=== PATIENT | female | born 1995 | race Caucasian/White ===

== ENCOUNTER 2024-08-14 15:09 | Emergency (ER) | payer MEDICAID, OTHER ==
[~2024-08-14] VITALS: Ht 162.6 cm; Wt 66.0 kg
[2024-08-14 15:15] VITALS: O2SAT 98
[2024-08-14 15:22] VITALS: BP 138/87; PULSE 100; RESP 18; TEMP 98.8; O2SAT 98
[2024-08-14] MEDS ORDERED: LORAZEPAM 0.5MG TABLET PO ONE (15:45)
[2024-08-14] MEDS: LORAZEPAM 0.5MG TABLET PO NR (17:53)
== END 2024-08-14 18:21 | disposition home or self-care (01) ==
LOC: ER 15:09
DX: F41.9 Anxiety disorder, unspecified (principal)
CPT/HCPCS: 71045; 82962; 93005; 99283